=== PATIENT | male | born 1940 | race Caucasian/White ===

== ENCOUNTER → 2017-01-26 | Outpatient (CLI) | payer MEDICARE ==
[2017-01-26 16:56] LABS: BLOOD UREA NITROGEN 22 mg/dl (7-18)
== END | disposition home or self-care (01) ==
LOC: C.LABBC 13:08
PROVIDERS: ATTEND Physician Assistant
DX: Z00.00 Encounter for general adult medical examination without abnormal findings (principal); E11.9 Type 2 diabetes mellitus without complications

== ENCOUNTER → 2017-01-28 | Outpatient (CLI) | payer MEDICARE ==
[~2017-01-28] MED LIST: GADAVIST IV PRN
--- NOTE | 2017-01-28 13:42 | DIAGNOSTIC IMAGING REPORT ---
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 IV administration of 7.2 mL of Gadavist contrast was uneventful. FINDINGS: Findings of generalized cerebellar as well as cerebral atrophy. No evidence for an acute ischemic event. Considerable chronic small vessel change. Moderate mucosal thickening of all major sinuses. No abnormal postcontrast enhancement. IMPRESSION: 1. Atrophy. 2. Considerable chronic small vessel change. 3. No acute process. 4. Chronic pansinusitis. The above report was generated using voice recognition software. It may contain grammatical, syntax or spelling errors. Electronically signed by: Jose Miguel Bill M.D. 01/28/2017 1:40 PM Dictated Date/Time: 01/28/2017 1:35 PM
== END | disposition home or self-care (01) ==
LOC: C.MRIBC 12:15
PROVIDERS: ATTEND Physician Assistant
DX: G25.0 Essential tremor (principal); G11.9 Hereditary ataxia, unspecified; R41.89 Other symptoms and signs involving cognitive functions and awareness; R32 Unspecified urinary incontinence